=== PATIENT | male | born 1975 | race Caucasian/White ===

== ENCOUNTER 2017-03-28 10:54 | Emergency (ER) | payer OTHER ==
--- NOTE | ~2017-03-28 | CR117 ---
[facility] A Service of [facility] & [facility] RADIOLOGY TEXT RESULTS PATIENT: NOAH JACKSON LOCATION: CFTX : 75 UNIT #: [id number] AGE: [address]: Sonia Boyle APRN SEX: M ORDER DR: [id number] [facility] [address] [place], [place] [address] [id number] MR#: [id number] Acc #: [id number] NAME: NOAH JACKSON : 1975 SEX: M STUDY DATE/TIME: 03/28/2017 11:31 UNIT: [facility] ROOM: STUDY DESCRIPTION: CR Finger 2 View Thumb Rt Attending Physician: Sonia Boyle A.P.R.N. Ordering Physician: Ed Chaz Khan M.D. Primary Care Physician: Primary Care Physician No MEDICAL IMAGING REPORT This report is preliminary unless electronic signature is present EXAM Right thumb, 3 views INDICATIONS Pain and swelling after injuring it 2 days ago. FINDINGS There is soft tissue swelling of the thumb. There is probably a nondisplaced fracture at the base of the distal phalanx, as evidenced by a very tiny linear lucency seen on the AP view. The lateral view demonstrates a tiny ossicle along the volar aspect of the base of the distal phalanx in the region of the IP joint, which may also be a tiny fracture. IMPRESSION Soft tissue swelling of the thumb. Suspected tiny nondisplaced fracture at the base of the distal phalanx. Dictated by... Daniel Fernandez M.D. THIS IS AN ELECTRONICALLY VERIFIED REPORT Daniel Fernandez M.D. at 03/29/2017 2:18 PM ARS/sam TD: 03/29/2017 00:42 JOB #: [id number] MEDICAL IMAGING REPORT Page 1 of 1 COPY
[~2017-03-28 10:54] MED LIST: ERYC250 MG PO; KEFLEX PO; TESSALON200 MG PO; TYLOX 5/500 CAP1 CAP PO
== END 2017-03-28 12:19 | disposition home or self-care (01) ==
LOC: CFTX 10:54 → CED 10:54 → CFTX 11:38
DX: S62.524B Nondisplaced fracture of distal phalanx of right thumb, initial encounter for open fracture (principal); Z23 Encounter for immunization; F17.210 Nicotine dependence, cigarettes, uncomplicated; Z88.5 Allergy status to narcotic agent; W23.0XXA Caught, crushed, jammed, or pinched between moving objects, initial encounter; Y92.009 Unspecified place in unspecified non-institutional (private) residence as the place of occurrence of the external cause
CPT/HCPCS: 73140; 90471; 90715; 99283